=== PATIENT | female | born 1955 | race Caucasian/White ===

== ENCOUNTER 2016-02-27 06:01 | Day surgery (SDC) | payer MEDICARE, MEDICAID ==
[2016-02-23 16:45] LABS: Urine Bilirubin Negative (Negative); Urine Ca Oxalate Crystal MANY (None Seen); Urine Color Yellow (Yellow); Urine Glucose TRACE mg/dL (Normal); Urine Ketone Negative (Negative); Urine Mucus FEW (None Seen); Urine Nitrite Negative (Negative); Urine RBC 61 /hpf (0 - 4); Urine Squamous Epithelial Cell MOD /hpf (<5); Urine Urobilinogen Normal (Negative); Urine pH 5.5 (5.0-8.0)
[2016-02-23 16:57] LABS: Urine Blood 2+ /uL (Negative)
[2016-02-23 17:01] LABS: Albumin 4.1 g/dL (3.4-5.0); BUN/Creatinine Ratio 15.3; Bilirubin, Total 0.4 mg/dL (0.2-1.0); Potassium 3.7 mmol/L (3.5-5.1); Total Protein 7.5 g/dL (6.4-8.2)
[2016-02-23 17:03] LABS: INR 0.94 (0.9-1.15); Partial Thromboplastin Time 25.9 sec (22.64-33.71); Prothrombin Time 9.7 sec (9.37-12.3)
[2016-02-23 17:11] LABS: Basophils # (auto) 0 uL; Basophils % (auto) 0.7 % (0.0-2.0); Eosinophils # (auto) 0.2 uL; Eosinophils % (auto) 3.4 % (0.0-7.0); Hematocrit 37.5 % (36.0-46.0); Hemoglobin 12.4 g/dL (12.2-16.2); Lymphocytes % (auto) 30.1 % (10.0-50.0); Mean Corpuscular Hemoglobin 30.5 pg (28.0-32.0); Mean Corpuscular Volume 92.2 fL (80.0-100.0); Monocytes # (auto) 0.6 uL; Neutrophils # (auto) 3.7 uL; Neutrophils % (auto) 56.8 % (37.0-80.0); Platelet Count (auto) 273 10^3/uL (140-450); Red Cell Distribution Width 14.7 % (11.6-16.0); White Blood Cell 6.5 10^3/uL (4.4-10.8)
[~2016-02-27] VITALS: Ht 167.6 cm; Wt 103.0 kg
[~2016-02-27 06:01] MED LIST: DOXE25CA2 PO; FOLI1TAB6 PO; GLIM4TAB42 PO; LEVO125T6 PO; LISI-275 PO; METF-312 PO; METH2.5T3 PO; OXYB15TA12 PO
[2016-02-27] MEDS ORDERED: ceFAZolin 1GM/50ML D5W 50 ML IV ONE (06:30)
[2016-02-27] MEDS ORDERED: MEPERIDINE HCL (50 MG/ML) 1 ML VIAL ONE (07:23)
[2016-02-27] MEDS ORDERED: fentaNYL CITRATE 100 MCG/2 ML VL ONE (07:23)
[2016-02-27] MEDS ORDERED: MIDAZOLAM HCL 1MG/1ML-2 ML VIAL ONE (07:23)
[2016-02-27] MEDS ORDERED: DEXAMETHASONE SOD PHOS 10MG/1ML VIAL INJ ONE (07:27)
[2016-02-27] MEDS ORDERED: PROPOFOL 10 MG/ML 20 ML IV ONE (07:27)
[2016-02-27] MEDS ORDERED: HYDROmorphone HCL 2 MG/ML VL IV PRN (08:00)
[2016-02-27] MEDS ORDERED: ONDANSETRON HCL 4 MG/2 ML VIAL IV ONE (08:00)
[2016-02-27] MEDS ORDERED: MIDAZOLAM HCL 1MG/1ML-2 ML VIAL IV PRN (08:00)
[2016-02-27] MEDS ORDERED: ePHEDrine SULFATE 50 MG/ML AMP IV PRN (08:00)
[2016-02-27] MEDS ORDERED: hydrALAZINE HCL 20 MG/ML VL IV PRN (08:00)
[2016-02-27] MEDS ORDERED: LABETALOL HCL 5 MG/ML 4ML SYRINGE IV PRN (08:00)
[2016-02-27] MEDS ORDERED: KETOROLAC TROMETH 30 MG/ML 1ML VIAL ONE (08:00)
[2016-02-27] MEDS ORDERED: MORPHINE SULF INJ 2 MG/ML SYRINGE 1ML IV PRN (08:00)
[2016-02-27] MEDS ORDERED: KETOROLAC TROMETH 30 MG/ML 1ML VIAL IV ONE (08:00)
[2016-02-27 09:04] VITALS: BP 133/70
== END 2016-02-27 09:09 | disposition home or self-care (01) ==
LOC: SUR 06:01
PROVIDERS: ATTEND Urology
DX: N20.0 Calculus of kidney (principal); E66.9 Obesity, unspecified; E11.9 Type 2 diabetes mellitus without complications; F41.9 Anxiety disorder, unspecified; F32.9 Major depressive disorder, single episode, unspecified; Z87.891 Personal history of nicotine dependence
CPT/HCPCS: 36415; 50590; 80053; 81001; 82962; 85025; 85049; 85610; 85730; J0690; J1100; J1885; J2175; J2250; J2704; J3010

== ENCOUNTER → 2018-08-24 | Outpatient (CLI) | payer MEDICARE, MEDICAID ==
[~2018-08-24] MED LIST changes: -LEVO125T6 PO; +LEVO125T7 PO; -METF-312 PO; +METF-370 PO
== END | disposition home or self-care (01) ==
LOC: LAB 16:33
PROVIDERS: ATTEND Urology
DX: N39.3 Stress incontinence (female) (male) (principal)
CPT/HCPCS: 87086

== ENCOUNTER 2018-11-09 10:17 | Day surgery (SDC) | payer MEDICARE, MEDICAID ==
[2018-11-05 12:01] LABS: Basophils # (auto) 0.1 uL; Basophils % (auto) 1.1 % (0.0-2.0); Eosinophils # (auto) 0.2 uL; Eosinophils % (auto) 3.4 % (0.0-7.0); Hematocrit 39.5 % (36.0-46.0); Hemoglobin 13.4 g/dL (12.2-16.2); Lymphocytes # (auto) 2.5 uL; Lymphocytes % (auto) 40.7 % (10.0-50.0); Mean Corpuscular Hemoglobin 32.9 pg (28.0-32.0); Mean Corpuscular Volume 96.9 fL (80.0-100.0); Monocytes # (auto) 0.5 uL; Monocytes % (auto) 8.1 % (0.0-12.0); Neutrophils # (auto) 2.8 uL; Neutrophils % (auto) 46.7 % (37.0-80.0); Nucleated Red Blood Cells % 0.1 %; Platelet Count (auto) 207 10^3/uL (140-450); Red Blood Cells 4.08 10^6/uL (4.0-5.20); Red Cell Distribution Width 13.7 % (11.8-14.3); White Blood Cell 6.1 10^3/uL (4.4-10.8)
[2018-11-05 12:36] LABS: INR < 0.93 (0.9-1.15); Partial Thromboplastin Time 26.5 sec (23.64-32.05)
[2018-11-05 12:43] LABS: Urine Bacteria FEW /hpf (None Seen); Urine Blood Negative /uL (Negative); Urine Mucus FEW (None Seen); Urine Specific Gravity 1.025 (1.001-1.035); Urine WBC 4 /hpf (0 - 5)
[2018-11-05 12:44] LABS: Potassium 4.1 mmol/L (3.5-5.1)
[2018-11-05 12:53] LABS: Albumin 4.1 g/dL (3.4-5.0); BUN/Creatinine Ratio 14.6; Bilirubin, Total 0.4 mg/dL (0.2-1.0); Calcium 9.2 mg/dL (8.5-10.1); Total Protein 7.5 g/dL (6.4-8.2)
[~2018-11-09] VITALS: Ht 167.6 cm; Wt 99.8 kg
[~2018-11-09 10:17] MED LIST changes: +ALPR1TAB7 PO; -DOXE25CA2 PO; +ETAN50IN5 SUBCUT; +HYDR200T36 PO; -LISI-275 PO; +LISI2.5T47 PO; +MELO1TAB73 PO; -METF-370 PO; +METF-372 PO
[2018-11-09] MEDS ORDERED: ceFAZolin 1GM VL ONE (13:38)
[2018-11-09] MEDS ORDERED: CONJ ESTROGENS 0.625MG/GM VAG CRM 30GM PV ONE (13:38)
[2018-11-09] MEDS ORDERED: CIPROFLOXACIN 400MG/200ML 200 ML IV ONE (13:38)
[2018-11-09] MEDS ORDERED: LIDOCAINE W/ EPINEPHRINE 1% 20ML VIAL ONE (13:38)
[2018-11-09] MEDS ORDERED: MEPERIDINE HCL (25 MG/ML) 1ML VIAL ONE ×2 (13:52→14:47)
[2018-11-09] MEDS ORDERED: fentaNYL CITRATE 100 MCG/2 ML VL ONE (13:52)
[2018-11-09] MEDS ORDERED: MIDAZOLAM HCL 1MG/1ML-2 ML VIAL ONE (13:52)
[2018-11-09] MEDS ORDERED: SUCCINYLCHOLINE CHLORIDE 20 MG/ML 10ML VIAL IV ONE (13:55)
[2018-11-09] MEDS ORDERED: NEOSTIGMINE 1 MG/ML INJ (10mg/10ML VIAL) IV ONE (13:58)
[2018-11-09] MEDS ORDERED: METOCLOPRAMIDE HCL 5MG/ml INJ 2ml VIAL IV ONE (13:58)
[2018-11-09] MEDS ORDERED: PHENYLEPHRINE HCL 10 MG/ML VL IV ONE (13:58)
[2018-11-09] MEDS ORDERED: GLYCOPYRROLATE 0.2 MG/ML 1ML VIAL IV ONE (13:58)
[2018-11-09] MEDS ORDERED: KETOROLAC TROMETH 30 MG/ML 1ML VIAL IV ONE (14:00)
[2018-11-09] MEDS ORDERED: HYDROmorphone HCL 2 MG/ML VL IV PRN (14:00)
[2018-11-09] MEDS ORDERED: ONDANSETRON HCL 4 MG/2 ML VIAL IV PRN (14:00)
[2018-11-09] MEDS ORDERED: MORPHINE SULFATE 4 MG/ML SYR/VIAL IV PRN (14:00)
[2018-11-09] MEDS ORDERED: MIDAZOLAM HCL 1MG/1ML-2 ML VIAL IV PRN (14:00)
[2018-11-09] MEDS ORDERED: ePHEDrine SULFATE 50 MG/ML AMP IV PRN (14:00)
[2018-11-09] MEDS ORDERED: LABETALOL HCL 5 MG/ML 4ML SYRINGE IV PRN (14:00)
[2018-11-09] MEDS ORDERED: ACCU-CHEK COMFORT CURVE STRIP VI ONE (14:00)
[2018-11-09] MEDS ORDERED: PROPOFOL 10 MG/ML 20 ML IV ONE (14:10)
[2018-11-09] MEDS ORDERED: DexAMETHasone SOD PHOS 10MG/1ML VIAL INJ ONE (14:10)
[2018-11-09] MEDS ORDERED: ROCURONIUM 10MG/ML 10ML VIAL IV ONE (14:10)
[2018-11-09 16:07] VITALS: BP 134/76
== END 2018-11-09 16:11 | disposition home or self-care (01) ==
LOC: SUR 10:17
PROVIDERS: ATTEND Urology
DX: N39.3 Stress incontinence (female) (male) (principal); G47.33 Obstructive sleep apnea (adult) (pediatric); E03.9 Hypothyroidism, unspecified; M06.9 Rheumatoid arthritis, unspecified; I10 Essential (primary) hypertension; E11.9 Type 2 diabetes mellitus without complications; E66.9 Obesity, unspecified; Z90.710 Acquired absence of both cervix and uterus; Z98.890 Other specified postprocedural states; Z98.84 Bariatric surgery status; Z87.442 Personal history of urinary calculi; Z79.899 Other long term (current) drug therapy; Z68.36 Body mass index [BMI] 36.0-36.9, adult; Z79.84 Long term (current) use of oral hypoglycemic drugs
CPT/HCPCS: 36415; 57288; 80053; 81001; 82962; 85025; 85610; 85730; 93005; C1763; J0330; J0690; J0744; J1100; J2175; J2250; J2370; J2704; J2765; J3010; J3590; J7030